=== PATIENT | female | born 1995 | race Caucasian/White ===

== ENCOUNTER → 2020-09-15 13:59 | Outpatient (BNVA) | payer SELFPAY | PROVIDERS: PCP Family Medicine; Visit Provider Nurse Practitioner | DX: J02.0 Streptococcal pharyngitis (principal) | CPT/HCPCS: 87880 ==

== ENCOUNTER 2021-02-02 12:19 | Emergency (ER) | payer SELFPAY ==
[2021-02-02 12:22] VITALS: BP 132/78; PULSE 110; RESP 16; TEMP 36.6; O2SAT 98; BMI 23.8
--- NOTE | 2021-02-02 12:46 | CT_ITS ---
WS: [id number] CT ABDOMEN PELVIS TECHNIQUE: Contrast-enhanced CT of the abdomen and pelvis with coronal and sagittal reformatted image s. CLINICAL INFORMATION: n/v abd pain, h/o renal stones COMPARISON: None. DLP: 971.[address] scans at [facility] use at least one of these dose optimization techniques: automat ed exposure control; mA and/or kV adjustment per patient size (includes targeted exams where dose is matched to clinical indication); or iterative reconstruction. FINDINGS: Mild diffuse fatty infiltration liver. Normal portal vein and splenic vein. Cholecystectomy. Lung bas es are well aerated. Adrenal glands are normal. Normal renal parenchymal enhancement. No hydronephros is. No obstructing renal or ureteral calculi.Tiny fat-containing umbilical hernia. Normal spleen. Nor mal GE junction. Normal pancreas. Normal caliber abdominal aorta. Adrenal glands are normal. No abdominal lymphadenopathy. A few slightly distended loops of peripheral enhancing small bowel in the midabdomen can be seen with small bowel enteritis. No evidence of high-grade obstruction. In addition, Heterogeneous enhancement involving the colon more prominent involving the cecum and ascending colon extending to the hepatic flexure and splenic flexure. Small amount of free fluid in the pelvis. Heterogeneous physiologic uterine enhancement. Peripherally enhancing right ovarian cyst or corpus luteum cyst measuring 1.[address]/CT abdomen pelvis w con* [id number] IMPRESSION: 1. Enhancing slightly distended loops of small bowel in the midabdomen with mi ld thickening and enhancement of the cecum, ascending colon, hepatic flexure an d splenic flexure described above consistent with infectious or inflammatory en terocolitis. Findings can also be seen with inflammatory bowel disease. 2. Appendix is not definitely visualized. 3. Small amount of free fluid in the pelvis with physiologic uterine enhanceme nt. Peripheral enhancing right ovarian cyst or corpus luteum cyst measuring 1.5 x 1.5 CM. 4. Mild diffuse fatty infiltration liver. Prior cholecystectomy. 5. Tiny fat-containing umbilical hernia. Attempted notification RYAN Munroe at 02/02/2021 2:11 PM.
--- NOTE | 2021-02-02 12:47 | W.ED.NAVMDI ---
HPI - Nausea/Vomiting/Diarrhea General: Chief complaint: Nausea/Vomiting/Diarrhea Stated complaint: N/V/D - BEGAN THIS AM Time Seen by Provider: 02/02/21 12:30 Source: patient and family (spouse) Mode of arrival: ambulatory Limitations: no limitations History of Present Illness: HPI Narrative: 26-year-old female patient presents to the emergency department with onset of nausea vomiting diarrhea that started early this morning. She reports onset of abdominal pain at approximately 2 AM, localized to the periumbilical area, she then developed onset of nausea vomiting and diarrhea. 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 She denies fever or chills. She denies difficulty with urination or urinary symptoms. She denies fever or chills. She states is weak and is not able to keep any oral fluid down. She is also complaining of lower back pain which started with abdominal pain. Reports use of Compazine and Zofran at home without resolution of nausea or vomiting. She states had medication left over from her . MD elicited complaint: nausea, vomiting, diarrhea and abdominal pain Pertinent past history: abdominal surgery Description of vomiting: watery Description of diarrhea: watery and lose Associated nausea: Yes Associated abdominal pain: Yes Location of pain: Epigastric and Periumbilical Radiation: diffuse Pain consistency: intermittent Severity: moderate Quality: cramping and aching Exacerbating factors: none Relieving factors: none Associated symtoms: Reports fatigue, anorexia and nausea; Denies altered mental status, anxiety, bloating, chest pain, dysuria, headache(s) or palpitations Review of Systems General: Reports: 10 or more systems reviewed and unremarkable except in HPI and below Const: Reports: fatigue Eyes: Denies: blurry vision or eye redness ENMT: Denies: throat pain, dental pain or disequilibrium Card: Denies: chest pain, palpitations or irregular heart rhythm Resp: Denies: dyspnea, productive cough, non-productive cough or wheezing GI: Reports: abdominal pain, nausea, vomiting, diarrhea and GI cramping; Denies: hematemesis, heartburn, constipation, bloating, change in stool character or hematochezia : Denies: difficulty voiding or dysuria Musc: Reports: back pain; Denies: neck pain, joint pain, joint stiffness or muscle weakness Skin/Breast: Denies: rash or pruritus Neuro: Denies: headache(s), weakness in extremities or behavioral changes Psych: Denies: anxiety, depression or sleeping more [place]/Lymph: Denies: easy bruising PFSH ED PFSH: Medical History Hypothyroid Surgical History History of bilateral tubal ligation History of cholecystectomy Social History Smoking and tobacco status: never smoked Physical Exam Const: COMMON NORMALS: no acute distress, patient oriented x3, alert and well nourished EXAM LIMITATIONS: no altered mental status and no physical limitations GENERAL APPEARANCE: cooperative, well kempt and well developed NUTRITIONAL APPEARANCE: thin ORIENTATION/CONSCIOUSNESS: Yes awake, Yes oriented to person, Yes oriented to place, Yes oriented to time and Yes Other orientation findings (not feeling well, actively vomiting) HENMT: COMMON NORMALS: normocephalic, atraumatic, EAC's normal, Normal external nose present and moist oral mucous membranes HEAD & SCALP: normocephalic and atraumatic FACE & SINUS: normal facial exam and face symmetric NOSE: Normal external nose present EXTERNAL AUDITORY CANAL: EAC's normal MOUTH: Normal oral and palatal mucosa present, lip normal and tongue normal THROAT: posterior oropharynx normal, tonsils normal and uvula midline Eye: COMMON NORMALS: Equal, round and reactive pupils present and EOMs intact bilaterally GENERAL EYE: appearance normal, both eyes and all related structures PUPIL: Yes Equal, round and reactive pupils present Neck/C-Spine: COMMON NORMALS: full ROM and no lymphadenopathy GENERAL: Yes normal visual inspection and Yes trachea midline CERVICAL SPINE: Yes cervical ROM normal Lymph: LYMPHATIC: no lymphadenopathy noted Chest: COMMONS NORMALS: normal inspection of the chest and normal palpation of entire chest wall Resp: COMMON NORMALS: normal respiratory effort, No use of accessory muscles and clear to auscultation bilaterally EFFORT & INSPECTION: Yes able to speak in complete sentences, Yes symmetric chest movement, No labored and No audible wheezes AUSCULTATION: clear to auscultation bilaterally Cardio: COMMON NORMALS: regular rate, regular rhythm, S1 normal heart sound present, S2 normal heart sound present and Peripheral pulses 2+ throughout RATE: regular rate RHYTHM: regular rhythm HEART SOUNDS: S1 normal heart sound present and S2 normal heart sound present PERIPHERAL PULSES: Peripheral pulses 2+ throughout GI: COMMON NORMALS: Soft to palpation INSPECTION: Yes normal to inspection, No abdominal wall ecchymosis, No abdominal distension and No central obesity AUSCULTATION: Yes Hyperactive bowel sounds present PALPATION: Yes Soft to palpation and Yes Tenderness to palpation present (GI) Details: other (diffuse) : COMMON NORMALS: Yes no CVA tenderness BLADDER/KIDNEY EXAM: Yes no CVA tenderness Back/Pelvis: COMMON NORMALS: no CVA tenderness, thoracic and lumbar spine normal to inspection and thoraco-lumbar ROM normal LUMBAR SPINE/LOWER BACK: Yes normal to inspection, Yes lumbar ROM normal, No lumbar spinal tenderness and Yes other soft tissue findings (soft tissue tenderness bilateral lumbar) Extremity: COMMON NORMALS: normal to inspection, full ROM, capillary refill normal, no clubbing, cyanosis or edema and no pedal edema GENERAL: Yes normal exam except as noted Neuro: COMMON NORMALS: patient oriented x3 and no focal motor deficits SENSORIUM/ORIENTATION: Yes alert, Yes oriented to person, Yes oriented to place and Yes oriented to time SPEECH: speech normal GAIT: Yes Normal gait present MOTOR EXAM: 5/5 motor strength present throughout Psych: COMMON NORMALS: mental status grossly normal, Normal thought process present, cooperative, normal affect, speech normal and activity/motor behavior normal APPEARANCE: Yes well kempt ACTIVITY/MOTOR BEHAVIOR: Yes appropriate eye contact SPEECH: Yes normal speech THOUGHT PROCESS: Normal thought process present Skin: COMMON NORMALS: no rashes or lesions noted, no wounds, turgor normal, no petechiae and no mottling GENERAL SKIN EXAM: no rashes or lesions noted, elasticity normal and turgor normal Course Vital Signs: Vital signs: Vital Signs Temperature 97.9 F 02/02/21 12:22 Pulse Rate 93 02/02/21 16:10 Respiratory Rate 16 02/02/21 12:22 Blood Pressure 108/68 02/02/21 16:10 Pulse Oximetry 99 02/02/21 16:10 MDM - Nausea/Vomiting/Diarrhea MDM Narrative: Medical decision making narrative: 26-year-old female patient presents to the emergency department with 1 day onset of nausea vomiting and diarrhea, she did not exhibit blood in her emesis or stool. She recently moved here from [place]. No one else in the home has been ill. She was administered 1 L of normal saline here in the ED along with Zofran, Pepcid Benadryl and Toradol. She did complain of abdominal pain and Toradol did alleviate her pain. She was able to tolerate p.o. fluids here in the ED, her nausea did resolve with medication. She requested to go home. CT scan of the abdomen and pelvis revealed slightly distended loops of small bowel in the mid abdomen which can be seen with enteritis. There was concern for irritable bowel syndrome versus inflammatory versus infectious with ESR only 6. ESR should be elevated if findings were consistent with inflammatory versus infectious enteritis. Viral etiology suspected. She is requesting to go home and go to bed. She feels she is well enough to go as symptoms have improved significantly. She was advised to return to the emergency department if she developed worsening symptoms. I also have sent referral to social secretary to help with primary care follow-up. Lab Data: Labs: Lab Results 02/02/21 02/02/21 02/02/21 Range/Units 13:00 13:00 13:00 WBC 12.7 H (4.0-10.0) 10^3/ uL RBC 5.25 (4.1-5.3) 10^6/u L Hgb 15.5 H (11.5-15.3) g/dL Hct 46.4 (37.0-47.0) % MCV 88.4 (81-99) fL MCH 29.5 (28.0-34.0) pg MCHC 33.4 (30.0-36.0) g/dL RDW 12.2 (12.1-15.1) % Plt Count 227 (130-400) 10^3/c mm MPV 12.0 H (7.4-10.4) fL Neut % (Auto) 92.7 % Lymph % (Auto) 4.3 % [place] % (Auto) 2.4 % Eos % (Auto) 0.1 % Baso % (Auto) 0.2 % Neut # (Auto) 11.77 H (1.8-7.7) 10^3/u L Lymph # (Auto) 0.6 L (0.8-4.8) 10^3/u L [place] # (Auto) 0.3 (0.2-0.9) 10^3/u L Eos # (Auto) 0.0 (0.0-0.8) 10^3/u L Baso # (Auto) 0.0 (0.0-0.1) 10^3/u L Nucleated RBC % (a uto) 0 % Nucleated RBCs # 0.0 /100WBC ESR (0-15) mm/hr Sodium 137 (136-145) mmol/L Potassium 3.7 (3.5-5.1) mmol/L Chloride 101 (98-107) mmol/L Carbon Dioxide 25 (22-29) mmol/L Anion Gap 14.7 (5-19) BUN 10 (6-20) mg/dL Creatinine 0.5 (0.5-0.9) mg/dL GFR Calculation 150.3 H (90-130) mL/min Glucose 98 (65-115) mg/dL Calculated Osmolal ity 283 L (285-295) mOsm/k g Calcium 8.7 (8.5-10.5) mg/dL Total Bilirubin 0.6 (0.15-1.2) mg/dL AST 26 (0-32) U/L ALT 24 (0-33) U/L Alkaline Phosphata se 75 (35-105) IU/L Total Protein 7.6 (6.6-8.7) g/dL Albumin 4.7 (3.5-5.2) g/dL Globulin 2.9 (1.3-4.6) g/dL Lipase 14 (13-60) U/L HCG, Qual Negative (Negative) Urine Color (Yellow) Urine Appearance (CLEAR) Urine pH (5-7) Ur Specific Gravit y (1.005-1.030) Urine Protein (Negative) Urine Glucose (UA) (Normal) Urine Ketones (Negative) Urine Blood (Negative) Urine Nitrate (Negative) Urine Bilirubin (Negative) Urine Urobilinogen (Negative) mg/dL Ur Leukocyte Mavis ase (Negative) Urine RBC (0-2) /hpf Urine WBC (0-5) /hpf Ur Squamous Epith Cells (0-5) /hpf Amorphous Sediment /hpf Urine Bacteria (NONE) /hpf Urine Mucus /hpf 02/02/21 02/02/21 Range/Units 13:00 13:10 WBC (4.0-10.0) 10^3/ uL RBC (4.1-5.3) 10^6/u L Hgb (11.5-15.3) g/dL Hct (37.0-47.0) % MCV (81-99) fL MCH (28.0-34.0) pg MCHC (30.0-36.0) g/dL RDW (12.1-15.1) % Plt Count (130-400) 10^3/c mm MPV (7.4-10.4) fL Neut % (Auto) % Lymph % (Auto) % [place] % (Auto) % Eos % (Auto) % Baso % (Auto) % Neut # (Auto) (1.8-7.7) 10^3/u L Lymph # (Auto) (0.8-4.8) 10^3/u L [place] # (Auto) (0.2-0.9) 10^3/u L Eos # (Auto) (0.0-0.8) 10^3/u L Baso # (Auto) (0.0-0.1) 10^3/u L Nucleated RBC % (a uto) % Nucleated RBCs # /100WBC ESR 6 (0-15) mm/hr Sodium (136-145) mmol/L Potassium (3.5-5.1) mmol/L Chloride (98-107) mmol/L Carbon Dioxide (22-29) mmol/L Anion Gap (5-19) BUN (6-20) mg/dL Creatinine (0.5-0.9) mg/dL GFR Calculation (90-130) mL/min Glucose (65-115) mg/dL Calculated Osmolal ity (285-295) mOsm/k g Calcium (8.5-10.5) mg/dL Total Bilirubin (0.15-1.2) mg/dL AST (0-32) U/L ALT (0-33) U/L Alkaline Phosphata se (35-105) IU/L Total Protein (6.6-8.7) g/dL Albumin (3.5-5.2) g/dL Globulin (1.3-4.6) g/dL Lipase (13-60) U/L HCG, Qual (Negative) Urine Color Yellow (Yellow) Urine Appearance Hazy A (CLEAR) Urine pH 5 (5-7) Ur Specific Gravit y 1.020 (1.005-1.030) Urine Protein Neg (Negative) Urine Glucose (UA) Norm (Normal) Urine Ketones 1+ H (Negative) Urine Blood Neg (Negative) Urine Nitrate Negative (Negative) Urine Bilirubin 1+ H (Negative) Urine Urobilinogen Norm (Negative) mg/dL Ur Leukocyte Mavis ase Negative (Negative) Urine RBC Rare (0-2) /hpf Urine WBC 0-4 H (0-5) /hpf Ur Squamous Epith Cells 5-10 H (0-5) /hpf Amorphous Sediment 2+ /hpf Urine Bacteria Trace (NONE) /hpf Urine Mucus 2+ /hpf Imaging Data^: CT Abd/Pel: Radiologist's impression: [address] [address] [address] Scan Report Signed Patient: Matteo Thompson #: [id number] : 1995Acct#:[id number] Age/Sex: 26 / FADM Date: 02/02/21 Loc: ERRoom/Bed: Attending Dr: Ordering Provider/Ordering MD: Vale Maurer Date of Service: 02/02/21 Procedure(s): CT abdomen pelvis w con* [id number] Accession Number(s): [id number] Report Number: [id number] WS: [id number] CT ABDOMEN PELVIS TECHNIQUE: Contrast-enhanced CT of the abdomen and pelvis with coronal and sagittal reformatted images. CLINICAL INFORMATION: n/v abd pain, h/o renal stones COMPARISON: None. DLP: 971.[address] scans at [facility] use at least one of these dose optimization techniques: automated exposure control; mA and/or kV adjustment per patient size (includes targeted exams where dose is matched to clinical indication); or iterative reconstruction. FINDINGS: Mild diffuse fatty infiltration liver. Normal portal vein and splenic vein. Cholecystectomy. Lung bases are well aerated. Adrenal glands are normal. Normal renal parenchymal enhancement. No hydronephrosis. No obstructing renal or ureteral calculi.Tiny fat-containing umbilical hernia. Normal spleen. Normal GE junction. Normal pancreas. Normal caliber abdominal aorta. Adrenal glands are normal. No abdominal lymphadenopathy. A few slightly distended loops of peripheral enhancing small bowel in the midabdomen can be seen with small bowel enteritis. No evidence of high-grade obstruction. In addition, Heterogeneous enhancement involving the colon more prominent involving the cecum and ascending colon extending to the hepatic flexure and splenic flexure. Small amount of free fluid in the pelvis. Heterogeneous physiologic uterine enhancement. Peripherally enhancing right ovarian cyst or corpus luteum cyst measuring 1.[address]/CT abdomen pelvis w con* [id number] IMPRESSION: 1. Enhancing slightly distended loops of small bowel in the midabdomen with mild thickening and enhancement of the cecum, ascending colon, hepatic flexure and splenic flexure described above consistent with infectious or inflammatory enterocolitis. Findings can also be seen with inflammatory bowel disease. 2. Appendix is not definitely visualized. 3. Small amount of free fluid in the pelvis with physiologic uterine enhancement. Peripheral enhancing right ovarian cyst or corpus luteum cyst measuring 1.5 x 1.5 CM. 4. Mild diffuse fatty infiltration liver. Prior cholecystectomy. 5. Tiny fat-containing umbilical hernia. Attempted notification RYAN Munroe at 02/02/2021 2:11 PM. Dictated By:Darinel Valdovinos MD Signed By:Darinel Valdovinos MDSigned Date/Time:02/02/21 1417 DD/ 1403 Discharge Plan Discharge Patient Disposition: Home Clinical Impression: Enteritis Nausea & vomiting Qualifiers: Vomiting type: unspecified Vomiting Intractability: intractable Qualified Code(s): R11.2 - Nausea with vomiting, unspecified Condition: Stable Prescriptions: New Zofran 4 mg tablet 4 mg PO Q4H 5 Days Qty: 14 RF: 0 Pepcid 20 mg tablet 20 mg PO BID Qty: 20 RF: 0 No Action iron 325 mg (65 mg iron) Tablet 325 mg PO DAILY RF: 0 Discharge Orders: Discharge ED (Routine); Ordered 02/02/21 Ordered By: Vale Maurer Referrals: Vianey Dai MD [Primary Care Provider] - Discharge Diet: Advance as tolerated and Clear Liquid Discharge Activity: Limit activity as instructed Patient Instructions: Gastroenteritis (ED), Acute Nausea and Vomiting (ED), Opioid Safety Activity Restrictions/Additional Instructions: administrative services assistant will be contacting you with a follow-up appointment with the primary care provider, please follow-up accordingly Return to the emergency department if you develop further symptoms such as fever, worsening abdominal pain, blood in your emesis or stool. Clear liquid diet for the next 12 hours, advance as tolerated, avoid greasy fried fatty foods for 7 days. Rest at home today and tomorrow, push lots and lots of fluids, advised Pedialyte to help with hydration. Coding Level of Care Code ED [employer] Manager for [employer] Fwd Exam Comprehensive
[2021-02-02] MEDS: ondansetron 2 mg/ML SDV 2 mL 4 MG IVP ×2 (13:03→16:04)
[2021-02-02] MEDS: famotidine 20 mg/2 mL INJ 40 MG IVP (13:03)
[2021-02-02] MEDS: sodium chloride 0.9% 1,000 ML 999 ML IV (13:04)
[2021-02-02 13:21] LABS: Basophils % 0.2 %; Eosinophils % 0.1 %; Hematocrit 46.4 % (37.0-47.0); Hemoglobin 15.5 g/dL (11.5-15.3); Lymphocytes # 0.6 10^3/uL (0.8-4.8); Lymphocytes % 4.3 %; Mean Corpuscular HGB Conc 33.4 g/dL (30.0-36.0); Mean Corpuscular Hemoglobin 29.5 pg (28.0-34.0); Mean Corpuscular Volume 88.4 fL (81-99); Monocytes # 0.3 10^3/uL (0.2-0.9); Monocytes % 2.4 %; Neutrophils # 11.77 10^3/uL (1.8-7.7); Neutrophils % 92.7 %; Nucleated Red Blood Cells % 0 %; Platelet Count 227 10^3/cmm (130-400); Red Blood Count 5.25 10^6/uL (4.1-5.3); Red Cell Distribution Width 12.2 % (12.1-15.1); White Blood Count 12.7 10^3/uL (4.0-10.0)
[2021-02-02 13:33] LABS: HCG, Serum Qual Negative (Negative)
[2021-02-02 13:36] LABS: Alanine Aminotransferase 24 U/L (0-33); Albumin Level 4.7 g/dL (3.5-5.2); Alkaline Phosphatase 75 IU/L (35-105); Anion Gap 14.7 (5-19); Aspartate Amino Transferase 26 U/L (0-32); Blood Urea Nitrogen 10 mg/dL (6-20); Calcium 8.7 mg/dL (8.5-10.5); Carbon Dioxide 25 mmol/L (22-29); Chloride 101 mmol/L (98-107); Globulin 2.9 g/dL (1.3-4.6); Glomerular Filtration Rate 150.3 mL/min (90-130); Glucose 98 mg/dL (65-115); Lipase 14 U/L (13-60); Osmolality Calculated 283 mOsm/kg (285-295); Potassium 3.7 mmol/L (3.5-5.1); Sodium 137 mmol/L (136-145); Total Bilirubin 0.6 mg/dL (0.15-1.2); Total Protein 7.6 g/dL (6.6-8.7)
[2021-02-02 13:43] LABS: Add Urine Microscopic? YES; Bilirubin Urine 1+ (Negative); Blood Urine Neg (Negative); Glucose Urine UA Norm (Normal); Ketones Urine 1+ (Negative); Leukocyte Esterase Urine Negative (Negative); Nitrate Urine Negative (Negative); Protein Urine Neg (Negative); Urine Appearance Hazy (CLEAR); Urine Color Yellow (Yellow); Urobilinogen Urine Norm (Negative); pH Urine 5 (5-7)
[2021-02-02 13:45] LABS: Bacteria Urine TRACE /hpf; Mucus Urine 2+ /hpf; RBC Urine RARE /hpf (0-2); WBC Urine 0-4 /hpf (0-5)
[2021-02-02 13:46] LABS: Add Urine Culture? No; Amorphous Sediment Urine 2+ /hpf
[2021-02-02] MEDS: iohexol 300 mg/mL 100 mL Btl IV (13:52)
[2021-02-02 14:30] VITALS: BP 104/69; PULSE 95; O2SAT 99
--- NOTE | 2021-02-02 14:47 | PC.PHAR ---
pt states she takes care of her own medications-pt states she use to take levothyroxine but hasnt taken in month or longer pt states she is only taking iron
[2021-02-02] MEDS: ketorolac 30 mg/mL INJ IVP (16:04)
[2021-02-02] MEDS: diphenhydrAMINE 50 mg/mL SDV 1mL 25 MG IVP (16:04)
[2021-02-02 16:10] VITALS: BP 108/68; PULSE 93; O2SAT 99
[2021-02-02 17:07] LABS: Erythrocyte Sedimentation Rate 6 mm/hr (0-15)
--- NOTE | 2021-02-03 13:17 | DCPLANNER ---
manager plan had message to speak with patient about getting established with a primary care physician. manager plan spoke with patient, she stated that she would like help in getting established with a primary care physician. Patient would like to be established at the [facility] in [place]. manager plan called the [place] [facility] [place] clinic, spoke with Camille, gave patient the appointment information. A follow up appointment was scheduled for Monday, February 08, 2021 at 10:00 with Cris Strickland NP. manager plan called patient and gave her the appointment information.
--- NOTE | 2021-05-03 07:26 | DCPLANNER ---
Patient had a follow up appointment scheduled for 02.08.21 with Cris Strickland at [facility] - patient did attend appointment.
== END 2021-02-02 17:05 | disposition home or self-care (01) ==
PROVIDERS: Emergency Provider Nurse Practitioner Family; PCP Family Medicine
DX: K52.9 Noninfective gastroenteritis and colitis, unspecified (principal)
CPT/HCPCS: 74177; 80053; 81001; 83690; 84703; 85025; 85651; 96361; 96374; 96375; 96376; 99284; J1200; J1885; J2405; J3490; J7030; Q9967

== ENCOUNTER 2021-06-19 19:39 | Emergency (ER) | payer SELFPAY ==
[2021-06-19 19:50] VITALS: BP 120/71; PULSE 90; RESP 16; TEMP 36.6; O2SAT 95; BMI 25.4
--- NOTE | 2021-06-19 23:07 | W.ED.NAVMDI ---
HPI - Nausea/Vomiting/Diarrhea General: Chief complaint: Nausea/Vomiting/Diarrhea Stated complaint: n/v/d Time Seen by Provider: 06/19/21 23:03 History of Present Illness: HPI Narrative: [place] day and drink for water and 2 Gatorade's and started getting feeling sick toward the end the day they went home and she started have some vomiting and cramping and nausea. Patient says she is feeling better now but still feels little nauseated. Denies any pain. Denies any fever chills or recent illness. Denies any chance of being . Had gallbladder removed 6 years ago. MD elicited complaint: nausea, vomiting and diarrhea Onset (ago): hour(s) Description of vomiting: food contents Associated nausea: Yes Associated abdominal pain: No Quality: cramping Associated symtoms: Reports no associated symptoms and nausea; Denies anxiety, change in vision, chest pain or headache(s) Review of Systems Const: Denies: fever(s), chills or body aches Eyes: Denies: change in vision or blurry vision ENMT: Denies: throat pain or nasal congestion Card: Denies: chest pain or dyspnea on exertion Resp: Denies: dyspnea, productive cough or non-productive cough GI: Reports: nausea and vomiting Musc: Denies: extremity pain Skin/Breast: Denies: rash Neuro: Denies: headache(s) Psych: Denies: anxiety or depression Burton/Lymph: Denies: easy bruising PFSH ED PFSH: Medical History Hypothyroid Surgical History History of bilateral tubal ligation History of cholecystectomy Social History Smoking and tobacco status: never smoked Second hand smoke exposure: No Alcohol intake: never Lives independently: Yes Household members: spouse Marital status: service: No Current occupational status: employed Current occupation: [employer] History of recent travel: No Current gender identity: Female Special rehan needs: No Agree to transfusion: Yes Female Reproductive History: Date of last menstrual period: 05/27/21 Physical Exam Const: COMMON NORMALS: no acute distress, average body habitus and patient oriented x3 HENMT: COMMON NORMALS: normocephalic HEAD & SCALP: normal to inspection and normocephalic FACE & SINUS: normal facial exam Eye: COMMON NORMALS: conjunctivae normal GENERAL EYE: appearance normal, both eyes and all related structures CONJUNCTIVA: Yes conjunctivae normal Neck/C-Spine: COMMON NORMALS: no JVD Chest: COMMONS NORMALS: normal inspection of the chest Resp: COMMON NORMALS: normal respiratory effort and clear to auscultation bilaterally AUSCULTATION: clear to auscultation bilaterally Cardio: COMMON NORMALS: no JVD, regular rate and regular rhythm RATE: regular rate RHYTHM: regular rhythm GI: COMMON NORMALS: Normal to inspection, nondistended, normoactive bowel sounds present Extremity: COMMON NORMALS: normal to inspection and full ROM Neuro: COMMON NORMALS: patient oriented x3 Skin: NARRATIVE SKIN EXAM: Has sunburn face. Course Vital Signs: Vital signs: Vital Signs Temperature 97.8 F 06/19/21 19:50 Pulse Rate 72 06/20/21 00:11 Respiratory Rate 18 06/20/21 00:11 Blood Pressure 112/78 06/20/21 00:11 Pulse Oximetry 96 06/20/21 00:11 MDM - Nausea/Vomiting/Diarrhea MDM Narrative: Medical decision making narrative: Patient feeling much better. Labs were negative for any concerning conditions. Patient tolerated fluids well patient will follow primary care provider as needed. Make sure to stay outside for next week or to get plenty of fluids. Lab Data: Labs: Lab Results 06/19/21 06/19/21 06/19/21 Range/Units 23:14 23:14 23:25 WBC 12.3 H (4.0-10.0) 10^3/ uL RBC 4.97 (4.1-5.3) 10^6/u L Hgb 14.8 (11.5-15.3) g/dL Hct 43.8 (37.0-47.0) % MCV 88.1 (81-99) fl MCH 29.8 (28.0-34.0) pg MCHC 33.8 (30.0-36.0) g/dL RDW 12.0 L (12.1-15.1) % Plt Count 246 (130-400) 10^3/c mm MPV 12.2 H (7.4-10.4) fL Neut % (Auto) 83.2 % Lymph % (Auto) 12.1 % Cherry % (Auto) 3.6 % Eos % (Auto) 0.8 % Baso % (Auto) 0.1 % Neut # (Auto) 10.22 H (1.8-7.7) 10^3/u L Lymph # (Auto) 1.5 (0.8-4.8) 10^3/u L Cherry # (Auto) 0.4 (0.2-0.9) 10^3/u L Eos # (Auto) 0.1 (0.0-0.8) 10^3/u L Baso # (Auto) 0.0 (0.0-0.1) 10^3/u L Nucleated RBC % (a uto) 0 % Nucleated RBCs # 0.0 /100WBC Sodium 138 (136-145) mmol/L Potassium 3.8 (3.5-5.1) mmol/L Chloride 101 (98-107) mmol/L Carbon Dioxide 24 (22-29) mmol/L Anion Gap 16.8 (5-19) BUN 6 (6-20) mg/dL Creatinine 0.5 (0.5-0.9) mg/dL GFR Calculation 150.3 H (90-130) mL/min Glucose 111 (65-115) mg/dL Calculated Osmolal ity 284 L (285-295) mOsm/k g Calcium 9.3 (8.5-10.5) mg/dL Total Bilirubin 0.6 (0.15-1.2) mg/dL AST 12 (0-32) U/L ALT 9 (0-33) U/L Alkaline Phosphata se 63 (35-105) IU/L Total Protein 7.5 (6.6-8.7) g/dL Albumin 4.5 (3.5-5.2) g/dL Globulin 3.0 (1.3-4.6) g/dL Lipase 14 (13-60) U/L HCG, Qual Negative (Negative) Urine Color (Yellow) Urine Appearance (CLEAR) Urine pH (5-7) Ur Specific Gravit y (1.005-1.030) Urine Protein (Negative) Urine Glucose (UA) (Normal) Urine Ketones (Negative) Urine Blood (Negative) Urine Nitrate (Negative) Urine Bilirubin (Negative) Urine Urobilinogen (Negative) mg/dL Ur Leukocyte Mavis ase (Negative) Urine RBC (0-2) /hpf Urine WBC (0-5) /hpf Ur Squamous Epith Cells (0-5) /hpf Amorphous Sediment Urine Bacteria (NONE) /hpf Urine Mucus /hpf 06/19/21 Range/Units 23:25 WBC (4.0-10.0) 10^3/ uL RBC (4.1-5.3) 10^6/u L Hgb (11.5-15.3) g/dL Hct (37.0-47.0) % MCV (81-99) fl MCH (28.0-34.0) pg MCHC (30.0-36.0) g/dL RDW (12.1-15.1) % Plt Count (130-400) 10^3/c mm MPV (7.4-10.4) fL Neut % (Auto) % Lymph % (Auto) % Cherry % (Auto) % Eos % (Auto) % Baso % (Auto) % Neut # (Auto) (1.8-7.7) 10^3/u L Lymph # (Auto) (0.8-4.8) 10^3/u L Cherry # (Auto) (0.2-0.9) 10^3/u L Eos # (Auto) (0.0-0.8) 10^3/u L Baso # (Auto) (0.0-0.1) 10^3/u L Nucleated RBC % (a uto) % Nucleated RBCs # /100WBC Sodium (136-145) mmol/L Potassium (3.5-5.1) mmol/L Chloride (98-107) mmol/L Carbon Dioxide (22-29) mmol/L Anion Gap (5-19) BUN (6-20) mg/dL Creatinine (0.5-0.9) mg/dL GFR Calculation (90-130) mL/min Glucose (65-115) mg/dL Calculated Osmolal ity (285-295) mOsm/k g Calcium (8.5-10.5) mg/dL Total Bilirubin (0.15-1.2) mg/dL AST (0-32) U/L ALT (0-33) U/L Alkaline Phosphata se (35-105) IU/L Total Protein (6.6-8.7) g/dL Albumin (3.5-5.2) g/dL Globulin (1.3-4.6) g/dL Lipase (13-60) U/L HCG, Qual (Negative) Urine Color Yellow (Yellow) Urine Appearance Sl hazy (CLEAR) Urine pH 5 (5-7) Ur Specific Gravit y 1.020 (1.005-1.030) Urine Protein Trace (Negative) Urine Glucose (UA) Norm (Normal) Urine Ketones 1+ H (Negative) Urine Blood Neg (Negative) Urine Nitrate Negative (Negative) Urine Bilirubin 1+ H (Negative) Urine Urobilinogen 1 H (Negative) mg/dL Ur Leukocyte Mavis ase Negative (Negative) Urine RBC 0-4 H (0-2) /hpf Urine WBC 0-4 H (0-5) /hpf Ur Squamous Epith Cells 0-4 H (0-5) /hpf Amorphous Sediment Not Reportable Urine Bacteria Trace (NONE) /hpf Urine Mucus 4+ /hpf Discharge Plan Discharge Patient Disposition: Home Clinical Impression: Gastroenteritis Condition: Stable Prescriptions: New Zofran 4 mg tablet 4 mg PO Q8H 3 Days Qty: 9 RF: 0 No Action dicyclomine 20 mg tablet 20 mg PO TID Qty: 30 RF: 0 iron 325 mg (65 mg iron) Tablet 325 mg PO DAILY RF: 0 Pepcid 20 mg tablet 20 mg PO BID Qty: 20 RF: 0 Discharge Orders: Discharge ED (Routine); Ordered 06/19/21 Ordered By: Spike Pete Referrals: Vianey Dai MD [Primary Care Provider] - Discharge Diet: Advance as tolerated Discharge Activity: Increase activity as tolerated Patient Instructions: Gastroenteritis (ED) Activity Restrictions/Additional Instructions: Follow-up with medical provider as directed. Take medications as prescribed. Return to the ER or your medical provider if condition worsens. Please read and understand discharge instructions. If any questions ask please. Stand Alone Forms: Work/School Release Coding Level of Care Code ED Varnish Inspector for Traci Fwd Exam Comprehensive
[2021-06-19 23:16] LABS: Basophils % 0.1 %; Eosinophils # 0.1 10^3/uL (0.0-0.8); Eosinophils % 0.8 %; Hematocrit 43.8 % (37.0-47.0); Hemoglobin 14.8 g/dL (11.5-15.3); Lymphocytes # 1.5 10^3/uL (0.8-4.8); Lymphocytes % 12.1 %; Mean Corpuscular HGB Conc 33.8 g/dL (30.0-36.0); Mean Corpuscular Hemoglobin 29.8 pg (28.0-34.0); Mean Corpuscular Volume 88.1 fl (81-99); Mean Platelet Volume 12.2 fL (7.4-10.4); Monocytes # 0.4 10^3/uL (0.2-0.9); Monocytes % 3.6 %; Neutrophils # 10.22 10^3/uL (1.8-7.7); Neutrophils % 83.2 %; Nucleated Red Blood Cells % 0 %; Platelet Count 246 10^3/cmm (130-400); Red Blood Count 4.97 10^6/uL (4.1-5.3); White Blood Count 12.3 10^3/uL (4.0-10.0)
[2021-06-19] MEDS: sodium chloride 0.9% 1,000 ML 999 ML IV (23:22)
[2021-06-19] MEDS: ondansetron 2 mg/ML SDV 2 mL 4 MG IVP (23:22)
[2021-06-19 23:32] LABS: Alanine Aminotransferase 9 U/L (0-33); Albumin Level 4.5 g/dL (3.5-5.2); Alkaline Phosphatase 63 IU/L (35-105); Anion Gap 16.8 (5-19); Aspartate Amino Transferase 12 U/L (0-32); Blood Urea Nitrogen 6 mg/dL (6-20); Calcium 9.3 mg/dL (8.5-10.5); Carbon Dioxide 24 mmol/L (22-29); Chloride 101 mmol/L (98-107); Glomerular Filtration Rate 150.3 mL/min (90-130); Glucose 111 mg/dL (65-115); Lipase 14 U/L (13-60); Osmolality Calculated 284 mOsm/kg (285-295); Potassium 3.8 mmol/L (3.5-5.1); Sodium 138 mmol/L (136-145); Total Bilirubin 0.6 mg/dL (0.15-1.2); Total Protein 7.5 g/dL (6.6-8.7)
[2021-06-19 23:40] LABS: HCG Qualitative Urine. Negative (Negative)
[2021-06-19 23:45] LABS: Add Urine Microscopic? YES; Bilirubin Urine 1+ (Negative); Blood Urine Neg (Negative); Glucose Urine UA Norm (Normal); Ketones Urine 1+ (Negative); Leukocyte Esterase Urine Negative (Negative); Nitrate Urine Negative (Negative); Protein Urine Trace (Negative); Urine Appearance SL Hazy (CLEAR); Urine Color Yellow (Yellow); Urobilinogen Urine 1 mg/dL (Negative); pH Urine 5 (5-7)
[2021-06-19 23:46] LABS: Add Urine Culture? No; Bacteria Urine TRACE /hpf; Mucus Urine 4+ /hpf; RBC Urine 0-4 /hpf (0-2); Squamous Epithelial Cell Urine 0-4 /hpf (0-5); WBC Urine 0-4 /hpf (0-5)
[2021-06-20] MEDS: ondansetron 2 mg/ML SDV 2 mL 4 MG IVP (00:06)
[2021-06-20 00:11] VITALS: BP 112/78; PULSE 72; RESP 18; O2SAT 96
== END 2021-06-20 00:13 | disposition home or self-care (01) ==
PROVIDERS: Emergency Medicine; Emergency Provider Nurse Practitioner Family; PCP Family Medicine
DX: K52.9 Noninfective gastroenteritis and colitis, unspecified (principal)
CPT/HCPCS: 80053; 81001; 81025; 83690; 85025; 96361; 96374; 96376; 99284; J2405; J7030

== ENCOUNTER → 2021-09-08 17:24 | Outpatient (BNVA) | payer OTHER, MEDICAID, SELFPAY | PROVIDERS: PCP Family Medicine; Visit Provider Registered Nurse Neonatal Intensive Care | DX: Z20.822 Contact with and (suspected) exposure to COVID-19 (principal); J32.9 Chronic sinusitis, unspecified | CPT/HCPCS: 87400; 87635; 87880 ==

== ENCOUNTER 2022-01-31 09:46 | Emergency (ER) | payer MEDICAID, SELFPAY ==
[2022-01-31 10:22] VITALS: BP 119/68; PULSE 114; RESP 17; TEMP 36.5; O2SAT 95; BMI 25.4
--- NOTE | 2022-01-31 11:26 | CT_ITS ---
WS: [id number] CT ABDOMEN PELVIS TECHNIQUE: Contrast-enhanced CT of the abdomen and pelvis with coronal and sagittal reformatted image s. CLINICAL INFORMATION: abd pain COMPARISON: CT February 02, 2021 DLP: 1021.[address] scans at [facility] use at least one of these dose optimization techniques: automated e xposure control; mA and/or kV adjustment per patient size (includes targeted exams where dose is matc hed to clinical indication); or iterative reconstruction. FINDINGS: Mild diffuse fatty infiltration the liver. Normal portal vein and splenic vein. Lung bases are well a erated. Spleen size upper limits of normal unchanged. Adrenal glands are normal. Normal renal parench ymal enhancement. No hydronephrosis. Normal pancreatic parenchymal enhancement. Normal caliber abdomi nal aorta. Celiac and SMA are patent. Tiny fat-containing umbilical hernia. Physiologic uterine enhancement. Tiny LEFT renal cyst. No hydro nephrosis in either kidney. Enhancing RIGHT corpus luteum cyst measuring 12 mm similar to previous. Multifollicular ovaries bilat erally. Trace free fluid in the RIGHT cul-de-sac. No evidence of acute appendicitis. Appendix is not well visualized. Tiny fat-containing umbilical hernia. CT/CT abdomen pelvis w con* [id number] IMPRESSION: 1. Appendix is difficult to visualize but no evidence of acute appendicitis. 2. No evidence of high-grade small or large bowel obstruction. 3. Small fat-containing umbilical hernia. 4. Peripheral enhancing RIGHT corpus luteum cyst measuring 12 mm similar to Ap ril 2020. 5. Prior cholecystectomy. 6. Mild diffuse fatty infiltration of the liver. 7. Spleen size upper limits of normal unchanged from previous.
[2022-01-31 11:32] VITALS: BP 149/122; PULSE 101; RESP 20; O2SAT 99
[2022-01-31 11:32] LABS: Basophils % 0.1 %; Hemoglobin 15.9 g/dL (11.5-15.3); Lymphocytes # 0.5 10^3/uL (0.8-4.8); Lymphocytes % 3.3 %; Mean Corpuscular HGB Conc 33.8 g/dL (30.0-36.0); Mean Corpuscular Hemoglobin 29.3 pg (28.0-34.0); Mean Corpuscular Volume 86.7 fl (81-99); Mean Platelet Volume 11.7 fL (7.4-10.4); Monocytes # 0.3 10^3/uL (0.2-0.9); Monocytes % 2.1 %; Neutrophils # 13.53 10^3/uL (1.8-7.7); Neutrophils % 94.2 %; Nucleated Red Blood Cells % 0 %; Platelet Count 239 10^3/cmm (130-400); Red Blood Count 5.42 10^6/uL (4.1-5.3); White Blood Count 14.4 10^3/uL (4.0-10.0)
[2022-01-31] MEDS: lactated ringers 1,000 ML 999 ML IV ×2 (11:35→13:05)
[2022-01-31] MEDS: ondansetron 2 mg/ML SDV 2 mL 4 MG IVP (11:35)
--- NOTE | 2022-01-31 11:48 | ED_ITS ---
HPI - Abdominal Pain General: Chief Complaint: Nausea/Vomiting/Diarrhea Stated Complaint: Nausia and vomiting, gallbladder surg area hurting Time Seen by Provider: 01/31/22 11:25 Source: patient Mode of arrival: ambulatory Limitations: no limitations History of Present Illness: [id number] female presents emergency room complaining of nausea and vomiting abdominal pain pain is in the right upper quadrant radiates into her back. She denies any dysuria urgency or frequency she said she had some red streaking in the vomitus at times. Her name hematochezia. No fever. Eating seems and drinking seem to make it worse she has not found nothing in particular seems to improve it. No other abdominal surgeries beyond the cholecystectomy several years ago. MD elicited complaint: abdominal pain Onset (ago): hour(s) Pain Consistency: constant Location: RUQ Severity: moderate Quality: cramping Radiation: none Exacerbating factors: nothing Relieving factors: nothing Associated Symptoms: Reports bloating, GI cramping, diarrhea, nausea and poor appetite; Denies anorexia, belching, change in bowel habits, change in stool character, chills, coffee ground emesis, constipation, dyspepsia, dysuria, excessive flatus, fever(s), heartburn, hematochezia, hematuria, hematemesis, fecal incontinence, loose stools, melena, syncope and vomiting Related Data: Date of Last Menstrual Period: 05/27/21 Review of Systems Const: Denies: fever(s) or chills Card: Denies: syncope GI: Reports: nausea, diarrhea, bloating and GI cramping; Denies: vomiting, hematemesis, coffee ground emesis, heartburn, constipation, belching, excessive flatus, fecal incontinence, change in bowel habits, change in stool character, hematochezia or melena : Denies: dysuria or hematuria PFSH ED PFSH: Medical History Hypothyroid Surgical History History of bilateral tubal ligation History of cholecystectomy Social History Second hand smoke exposure: No Alcohol intake: never Lives independently: Yes Household members: spouse Marital status: service: No Current occupational status: employed Current occupation: [employer] History of recent travel: No Current gender identity: Female Special rehan needs: No Agree to transfusion: Yes Female Reproductive History: Date of last menstrual period: 05/27/21 Physical Exam Const: COMMON NORMALS: no acute distress GENERAL APPEARANCE: cooperative and comfortable ORIENTATION/CONSCIOUSNESS: Yes awake, Yes oriented to person, Yes oriented to place and Yes oriented to time HENMT: COMMON NORMALS: normocephalic, atraumatic, hearing grossly normal bilaterally, external ears normal, EAC's normal, TM's normal bilaterally, Normal nasal mucous membranes and turbinates present, moist oral mucous membranes and oropharynx normal HEAD & SCALP: normocephalic and atraumatic NOSE: Normal nasal mucous membranes and turbinates present EXTERNAL EAR: Yes external ears normal EXTERNAL AUDITORY CANAL: EAC's normal TYMPANIC MEMBRANE: TM's normal bilaterally Eye: COMMON NORMALS: Equal, round and reactive pupils present, EOMs intact bilaterally, conjunctivae normal and no scleral icterus CONJUNCTIVA: Yes conjunctivae normal PUPIL: Yes Equal, round and reactive pupils present Neck/C-Spine: COMMON NORMALS: full ROM, no lymphadenopathy, supple and no JVD Lymph: LYMPHATIC: no lymphadenopathy noted and no lymphedema noted Resp: COMMON NORMALS: normal respiratory effort, No retractions, No use of accessory muscles and clear to auscultation bilaterally AUSCULTATION: clear to auscultation bilaterally Cardio: COMMON NORMALS: no JVD, regular rate, regular rhythm and No murmurs present (Cardio) RATE: regular rate RHYTHM: regular rhythm GI: COMMON NORMALS: Soft to palpation and No hepatosplenomegaly present AUSCULTATION: Yes normoactive bowel sounds PALPATION: Yes Soft to palpation, No Tenderness to palpation present (GI), No Guarding due to palpation present (GI) and Yes No hepatosplenomegaly present Extremity: COMMON NORMALS: normal to inspection, capillary refill normal, no clubbing, cyanosis or edema, no calf tenderness and no pedal edema Neuro: SENSORIUM/ORIENTATION: Yes oriented to person, Yes oriented to place and Yes oriented to time Skin: COMMON NORMALS: no rashes or lesions noted GENERAL SKIN EXAM: no rashes or lesions noted Course Vital Signs: Vital signs: Vital Signs Temperature 97.7 F 01/31/22 10:22 Pulse Rate 104 H 01/31/22 13:59 Respiratory Rate 19 H 01/31/22 13:59 Blood Pressure 108/68 01/31/22 13:59 Pulse Oximetry 100 01/31/22 13:59 MDM - Abdominal Pain Medical Decision Making Labs and imaging reviewed. We will go ahead and discharge the patient home CT consistent with gastroenteritis patient's improved after fluids discharge home clear liquid diet antiemetics as needed advance as tolerated Medical Records I reviewed the patient's medical records. Lab Data I reviewed the patient's lab results. : 01/31/22 11:26 01/31/22 11:26 Labs/Radiology: Radiology Impressions Abdomen/Pelvis CT 01/31/22 11:26 IMPRESSION: 1. Appendix is difficult to visualize but no evidence of acute appendicitis. 2. No evidence of high-grade small or large bowel obstruction. 3. Small fat-containing umbilical hernia. 4. Peripheral enhancing RIGHT corpus luteum cyst measuring 12 mm similar to February 02, 2021. 5. Prior cholecystectomy. 6. Mild diffuse fatty infiltration of the liver. 7. Spleen size upper limits of normal unchanged from previous. Laboratory Results WBC 14.4 10^3/uL (4.0-10.0) H 01/31/22 11:26 RBC 5.42 10^6/uL (4.1-5.3) H 01/31/22 11:26 Hgb 15.9 g/dL (11.5-15.3) H 01/31/22 11:26 Hct 47.0 % (37.0-47.0) 01/31/22 11:26 MCV 86.7 fl (81-99) 01/31/22 11:26 MCH 29.3 pg (28.0-34.0) 01/31/22 11:26 MCHC 33.8 g/dL (30.0-36.0) 01/31/22 11:26 RDW 12.0 % (12.1-15.1) L 01/31/22 11:26 Plt Count 239 10^3/cmm (130-400) 01/31/22 11:26 MPV 11.7 fL (7.4-10.4) H 01/31/22 11:26 Neut % (Auto) 94.2 % 01/31/22 11:26 Lymph % (Auto) 3.3 % 01/31/22 11:26 [place]roy[place] % (Auto) 2.1 % 01/31/22 11: Eos % (Auto) 0.0 % 01/31/22 11: Baso % (Auto) 0.1 % 01/31/22 11: Neut # (Auto) 13.53 10^3/uL (1.8-7.7) H 01/31/22 11: Lymph # (Auto) 0.5 10^3/uL (0.8-4.8) L 01/31/22 11:26 [place] # (Auto) 0.3 10^3/uL (0.2-0.9) 01/31/22 11: Eos # (Auto) 0.0 10^3/uL (0.0-0.8) 01/31/22 11: Baso # (Auto) 0.0 10^3/uL (0.0-0.1) 01/31/22 11: Nucleated RBC % (auto) 0 % 01/31/22 11: Nucleated RBCs # 0.0 /100WBC 01/31/22 11:26 Sodium 136 mmol/L (136-145) 01/31/22 11:26 Potassium 4.2 mmol/L (3.5-5.1) 01/31/22 11: Chloride 100 mmol/L (98-107) 01/31/22 11: Carbon Dioxide 22 mmol/L (22-29) 01/31/22 11:26 Anion Gap 18.2 (5-19) 01/31/22 11:26 BUN 11 mg/dL (6-20) 01/31/22 11:26 Creatinine 0.6 mg/dL (0.5-0.9) 01/31/22 11:26 GFR Calculation 120.8 mL/min (90-130) 01/31/22 11:26 Glucose 121 mg/dL (65-115) H 01/31/22 11:26 Calculated Osmolality 283 mOsm/kg (285-295) L 01/31/22 11:26 Calcium 9.3 mg/dL (8.5-10.5) 01/31/22 11:26 Total Bilirubin 0.7 mg/dL (0.15-1.2) 01/31/22 11:26 AST 26 U/L (0-32) 01/31/22 11:26 ALT 20 U/L (0-33) 01/31/22 11:26 Alkaline Phosphatase 61 IU/L (35-105) 01/31/22 11:26 Total Protein 7.3 g/dL (6.6-8.7) 01/31/22 11:26 Albumin 4.7 g/dL (3.5-5.2) 01/31/22 11:26 Globulin 2.6 g/dL (1.3-4.6) 01/31/22 11:26 Lipase 11 U/L (13-60) L 01/31/22 11:26 Urine Color Dark yellow (Yellow) 01/31/22 11:00 Urine Appearance Clear (CLEAR) 01/31/22 11:00 Urine pH 6 (5-7) 01/31/22 11:00 Ur Specific [place] 1.020 (1.005-1.030) 01/31/22 11:00 Urine Protein Neg (Negative) 01/31/22 11:00 Urine Glucose (UA) Norm (Normal) 01/31/22 11:00 Urine Ketones 1+ (Negative) H 01/31/22 11:00 Urine Blood Neg (Negative) 01/31/22 11:00 Urine Nitrate Negative (Negative) 01/31/22 11:00 Urine Bilirubin Neg (Negative) 01/31/22 11:00 Urine Urobilinogen Neg mg/dL (Negative) 01/31/22 11:00 Ur Leukocyte Esterase Negative (Negative) 01/31/22 11:00 Urine HCG, Qual Negative (Negative) 01/31/22 11:50 Discharge Plan Discharge Patient Disposition: Home Clinical Impression: Gastroenteritis Condition: Stable Prescriptions: New ondansetron HCl 4 mg tablet 4 mg PO Q6H PRN (Reason: nausea and vomiting) Qty: 20 0RF No Action ferrous sulfate 200 mg (40 mg iron) Tablet 400 mg PO BID 0RF aspirin 325 mg Tablet 162.5 mg PO .ONCE 0RF Discharge Orders: Discharge ED (Routine); Ordered 01/31/22 Ordered By: Enrique Moore Referrals: Vianey Dai MD [Primary Care Provider] - Discharge Diet: Clear Liquid Discharge Activity: Increase activity as tolerated Patient Instructions: Opioid Safety Activity Restrictions/Additional Instructions: Clear liquid diet for 24 to 40 hours and advance as tolerated. Stand Alone Forms: Work/School Release Coding Level of Care Code ED Supervisor Type Disk Quality Control for Kel Cuevas
[2022-01-31 11:57] LABS: Alanine Aminotransferase 20 U/L (0-33); Albumin Level 4.7 g/dL (3.5-5.2); Alkaline Phosphatase 61 IU/L (35-105); Blood Urea Nitrogen 11 mg/dL (6-20); Calcium 9.3 mg/dL (8.5-10.5); Carbon Dioxide 22 mmol/L (22-29); Chloride 100 mmol/L (98-107); Globulin 2.6 g/dL (1.3-4.6); Glomerular Filtration Rate 120.8 mL/min (90-130); Glucose 121 mg/dL (65-115); Lipase 11 U/L (13-60); Osmolality Calculated 283 mOsm/kg (285-295); Sodium 136 mmol/L (136-145); Total Bilirubin 0.7 mg/dL (0.15-1.2); Total Protein 7.3 g/dL (6.6-8.7)
[2022-01-31 12:01] LABS: Anion Gap 18.2 (5-19); Potassium 4.2 mmol/L (3.5-5.1)
[2022-01-31 12:02] LABS: Aspartate Amino Transferase 26 U/L (0-32)
[2022-01-31] MEDS: iohexol 350 mg/mL 100 mL Btl IV (12:24)
[2022-01-31 12:34] VITALS: BP 116/79; PULSE 90; RESP 17; O2SAT 100
[2022-01-31 13:48] LABS: Add Urine Microscopic? NO; Charge for UA Resulting for Rev
[2022-01-31 13:59] VITALS: BP 108/68; PULSE 104; RESP 19; O2SAT 100
[2022-01-31 14:04] LABS: Bilirubin Urine Neg (Negative); Blood Urine Neg (Negative); Glucose Urine UA Norm (Normal); Ketones Urine 1+ (Negative); Leukocyte Esterase Urine Negative (Negative); Nitrate Urine Negative (Negative); Protein Urine Neg (Negative); Urine Appearance Clear (CLEAR); Urine Color Dark Yellow (Yellow); Urobilinogen Urine Neg (Negative); pH Urine 6 (5-7)
== END 2022-01-31 14:02 | disposition home or self-care (01) ==
PROVIDERS: Emergency Medicine; Emergency Provider Family Medicine; PCP Family Medicine
DX: K52.9 Noninfective gastroenteritis and colitis, unspecified (principal)
CPT/HCPCS: 74177; 80053; 81003; 81025; 83690; 85025; 96361; 96374; 99284; J2405; Q9967

== ENCOUNTER 2022-04-03 23:35 | Emergency (ER) | payer MEDICAID, SELFPAY ==
--- NOTE | 2022-04-03 23:36 | XRR_ITS ---
PROCEDURE INFORMATION: Exam: XR Left Knee Exam date and time: 04/04/2022 12:13 AM Age: 27 years old Clinical indication: Injury or trauma; Other: Hit on hitch; Blunt trauma; Knee; Left TECHNIQUE: Imaging protocol: Radiologic exam of the Left knee. Views: 3 views. COMPARISON: No relevant prior studies available. FINDINGS: Bones/joints: Normal. Soft tissues: Normal. XR/XR knee LT 3V* [id number] IMPRESSION: No acute findings.
[2022-04-03 23:55] VITALS: BP 125/88; PULSE 86; RESP 18; TEMP 36.7; O2SAT 98; BMI 26.4
--- NOTE | 2022-04-03 23:55 | W.ED.LOWEXIN ---
HPI - Extremity Injury (Lower) General: Chief Complaint: Extremity Injury, Lower Stated Complaint: left knee injury Time Seen by Provider: 04/03/22 23:39 History of Present Illness: 27-year-old female comes in today with complaints of left knee pain. Patient reports about 2 weeks ago she was walking down the back end of her vehicle when she hit her left kneecap against the hitch. Since then patient has had anterior knee pain and discomfort. No significant swelling or redness is noted to the knee. Patient has been wearing a brace with minimal relief. Review of Systems General: Reports: 10 or more systems reviewed and unremarkable except in HPI and below Card: Denies: chest pain Resp: Denies: dyspnea Musc: Reports: extremity pain PFSH ED PFSH: Medical History Hypothyroid Surgical History History of bilateral tubal ligation History of cholecystectomy Social History Second hand smoke exposure: No Alcohol intake: never Lives independently: Yes Household members: spouse Marital status: service: No Current occupational status: employed Current occupation: [employer] History of recent travel: No Current gender identity: Female Special rehan needs: No Agree to transfusion: Yes Female Reproductive History: Date of last menstrual period: 05/27/21 Physical Exam Const: COMMON NORMALS: alert HENMT: HEAD & SCALP: normal to inspection Neck/C-Spine: COMMON NORMALS: full ROM Resp: COMMON NORMALS: normal respiratory effort Cardio: COMMON NORMALS: regular rate RATE: regular rate Extremity: LEFT LOWER EXTREMITY: Yes knee joint (Tenderness to the patella) Left knee: Yes inspection, Yes palpation and Yes ROM Neuro: SENSORIUM/ORIENTATION: Yes alert Skin: COMMON NORMALS: no rashes or lesions noted and no mottling GENERAL SKIN EXAM: no rashes or lesions noted Course Vital Signs: Vital signs: Vital Signs Temperature 98.1 F 04/04/22 00:40 Pulse Rate 84 04/04/22 00:40 Respiratory Rate 16 04/04/22 00:40 Blood Pressure 124/89 04/04/22 00:40 Pulse Oximetry 99 04/04/22 00:40 MDM - Extremity Injury (Lower) Medical Decision Making Patient comes in for evaluation of left knee pain and injury. On exam patient has normal range of motion of the extremities. Patient has tenderness to the patella. Minimal to no swelling is noted. Vital signs are normal. No redness or inflammation is noted. Differential diagnosis includes contusion, fracture, meniscal injury. X-ray noted no significant abnormality. Reviewed exam with patient with recommendations for follow-up. Patient reported understanding agreed to plan. Discharge Plan Discharge Patient Disposition: Home Clinical Impression: Knee pain, left Qualifiers: Chronicity: acute Qualified Code(s): M25.562 - Pain in left knee Condition: Stable Prescriptions: New diclofenac sodium 75 mg tablet,delayed release (DR/EC) 75 mg PO BID PRN (Reason: pain) Qty: 20 0RF No Action ferrous sulfate 200 mg (40 mg iron) Tablet 400 mg PO BID 0RF aspirin 325 mg Tablet 162.5 mg PO .ONCE 0RF ondansetron HCl 4 mg tablet 4 mg PO Q6H PRN (Reason: nausea and vomiting) Qty: 20 0RF Discharge Orders: Discharge ED (Routine); Ordered 04/04/22 Ordered By: Steve Weiss Referrals: Vianey Dai MD [Primary Care Provider] - Discharge Diet: Usual diet Discharge Activity: Increase activity as tolerated Patient Instructions: Knee Pain (ED) Activity Restrictions/Additional Instructions: Activity as tolerated. If the knee brace helps you can continue with its use. If is not helping with the pain I would stop using it. Sometimes a contusion pain can persist up to 4 to 6 weeks. Another concern may be that you injured your meniscus which may have persistent pain for up to 6 to 8 weeks. Use acetaminophen and the diclofenac for your pain. Follow-up with primary care in 1 week for recheck. Return to ER for new concerns such as high fever, increased redness and swelling to the leg. Stand Alone Forms: Work/School Release Coding Level of Care Code ED Right Of Way Manager for Kel Cuevas
[2022-04-04 00:40] VITALS: BP 124/89; PULSE 84; RESP 16; TEMP 36.7; O2SAT 99
== END 2022-04-04 00:42 | disposition home or self-care (01) ==
PROVIDERS: Emergency Provider Nurse Practitioner Family; PCP Family Medicine
DX: M25.562 Pain in left knee (principal)
CPT/HCPCS: 73562; 99283

== ENCOUNTER → 2022-10-25 15:00 | Outpatient (BNVA) | payer MEDICAID, SELFPAY | PROVIDERS: PCP Family Medicine; Visit Provider Nurse Practitioner Women's Health | DX: E03.9 Hypothyroidism, unspecified (principal); Z30.011 Encounter for initial prescription of contraceptive pills; Z01.419 Encounter for gynecological examination (general) (routine) without abnormal findings; E28.2 Polycystic ovarian syndrome; D64.9 Anemia, unspecified | CPT/HCPCS: 84439; 84443; 85025 ==

== ENCOUNTER → 2022-11-16 09:50 | Outpatient (BNVA) | payer MEDICAID, SELFPAY | PROVIDERS: PCP Family Medicine; Visit Provider Nurse Practitioner Family | DX: R50.9 Fever, unspecified (principal); J98.8 Other specified respiratory disorders | CPT/HCPCS: 87400; 87426 ==

== ENCOUNTER → 2023-05-13 11:14 | Outpatient (BNVA) | payer MEDICAID, SELFPAY | PROVIDERS: PCP Family Medicine; Visit Provider Obstetrics & Gynecology | DX: N92.6 Irregular menstruation, unspecified (principal) | CPT/HCPCS: 76830 ==